=== PATIENT | female | born 1930 | race Two or more races ===

== ENCOUNTER 2018-06-27 11:34 | Outpatient (CLI) | payer OTHER | END 2018-06-27 11:54 | disposition home or self-care (01) | LOC: RAD 501 11:34 | DX: M51.36 Other intervertebral disc degeneration, lumbar region (principal); M48.07 Spinal stenosis, lumbosacral region; M46.1 Sacroiliitis, not elsewhere classified; M17.0 Bilateral primary osteoarthritis of knee ==

== ENCOUNTER 2018-12-13 14:05 | Outpatient (CLI) | payer OTHER | END 2018-12-13 14:13 | disposition home or self-care (01) | LOC: RAD 501 14:05 | DX: S83.422A Sprain of lateral collateral ligament of left knee, initial encounter (principal); H05.332 Deformity of left orbit due to trauma or surgery; Z96.642 Presence of left artificial hip joint ==